=== PATIENT | female | born 1945 | race Caucasian/White ===

== ENCOUNTER 2020-11-18 05:58 | Inpatient (IN) | payer OTHER ==
[~2020-11-18] VITALS: Ht 165.1 cm; Wt 118.0 kg
[~2020-11-18 05:58] MED LIST: ZOSYN 3/0.373.375 G3 IVPB
[2020-11-18 09:17] VITALS: BP 164/68
[2020-11-18] MEDS ORDERED: [UNRECOGNIZED DRUG - OTHER] (10:55)
[2020-11-18] MEDS ORDERED: IVERMECTIN (10:55)
[2020-11-18] MEDS ORDERED: DEXAMETHASONE6 MG PO (10:56)
[2020-11-18] MEDS ORDERED: MELATONIN3 MG PO (10:56)
[2020-11-18] MEDS ORDERED: FUROSEMIDE 40 M40 M1 PO (10:57)
[2020-11-18] MEDS ORDERED: CONSTULOSE10 GM/152 (10:57)
[2020-11-18] MEDS ORDERED: OMEPRAZOLE40 MG PO (10:58)
[2020-11-18] MEDS ORDERED: LEVOTHYROXINE100 MCG PO (10:58)
[2020-11-18] MEDS ORDERED: POTASSIUM CHLO10 MEQ PO (10:58)
[2020-11-18] MEDS ORDERED: AMARYL2 MG PO (10:58)
[2020-11-18] MEDS ORDERED: ATORVASTATIN CA20 MG PO (10:59)
[2020-11-18] MEDS ORDERED: NEURONTIN 400400 M1 PO (10:59)
[2020-11-18] MEDS ORDERED: DILTIAZEM 24HR120 M1 PO (10:59)
[2020-11-18] MEDS ORDERED: APAP W/CODEINE1 TA2 PO (10:59)
[2020-11-18] MEDS ORDERED: LOSARTAN POTAS100 MG PO (11:00)
[2020-11-18] MEDS ORDERED: METFORMIN HCL1000 MG PO (11:00)
[2020-11-18] MEDS ORDERED: GOLYTELY4000 ML PO (11:00)
[2020-11-18] MEDS ORDERED: ADMELOG100 UNIT/1 SUBQ (11:32)
[2020-11-18] MEDS ORDERED: CARVEDILOL6.25 M1 PO (11:34)
[2020-11-18] MEDS ORDERED: NADOLOL 20 MG T20 M1 PO (11:35)
[2020-11-18] MEDS ORDERED: TYLENOL325 M1 PO (11:37)
[2020-11-18] MEDS ORDERED: IPRAT-ALBUT 0.5-3 ML INH (11:41)
[2020-11-18] MEDS ORDERED: PROAIR HFA8.5 GM INH (11:42)
[2020-11-18] MEDS ORDERED: DULCOLAX STOOL100 M1 PO (11:43)
[2020-11-18] MEDS ORDERED: IOHEXOL 300 MG/ML IV (11:45)
[2020-11-18 12:00] VITALS: BP 165/64
[2020-11-18 15:52] LABS: ABSOLUTE LYMPHOCYTES 0.3 thou/uL (0.8-5.3); ABSOLUTE MONOCYTES 0.2 thou/uL (0.0-1.2); ABSOLUTE NEUTROPHILS 2.1 thou/uL (1.6-8.1); BASOPHILS 0.3 %; HEMATOCRIT 34.9 % (37.0-47.0); HEMOGLOBIN 12.3 gm/dL (12.0-15.0); LYMPHOCYTES 12.5 %; MCH 32.8 pg (26.0-34.0); MCHC 35.4 g/dL (28.0-37.0); MCV 92.7 fL (80.0-100.0); MONOCYTES 7.4 %; MPV 8.6 fl. (7.2-11.1); NUCLEATED RBCS 0 /100WBC; POLYS 78.8 %; RBC 3.76 mil/uL (4.20-5.00); RDW-CV 13.8 % (10.5-14.5); WBC 2.7 thou/uL (4.0-11.0)
[2020-11-18 15:53] LABS: PLATELET COUNT* 34 thou/uL (150-400)
[2020-11-18 16:12] LABS: ALBUMIN 2.4 g/dL (3.4-5.0); CALCIUM 7.8 mg/dL (8.5-10.1); CREATININE 1.3 mg/dL (0.6-1.3); TOTAL BILIRUBIN 2.2 mg/dL (<0.1-1.0); TOTAL PROTEIN 5.1 g/dL (6.4-8.2)
[2020-11-18 16:49] VITALS: BP 143/70
[2020-11-18 20:00] VITALS: BP 129/45
[2020-11-19] VITALS (7 sets, daily range): BP systolic 112–168; BP diastolic 47–69
[2020-11-19 05:42] LABS: ABSOLUTE EOSINOPHILS 0.1 thou/uL (0.0-0.7); ABSOLUTE LYMPHOCYTES 0.4 thou/uL (0.8-5.3); ABSOLUTE MONOCYTES 0.2 thou/uL (0.0-1.2); ABSOLUTE NEUTROPHILS 1.8 thou/uL (1.6-8.1); BASOPHILS 0.1 %; EOSINOPHILS 2.6 %; HEMATOCRIT 32.9 % (37.0-47.0); HEMOGLOBIN 11.6 gm/dL (12.0-15.0); LYMPHOCYTES 16.9 %; MCH 32.8 pg (26.0-34.0); MCHC 35.2 g/dL (28.0-37.0); MCV 93.1 fL (80.0-100.0); MONOCYTES 6.7 %; MPV 8.6 fl. (7.2-11.1); NUCLEATED RBCS 0 /100WBC; POLYS 73.7 %; RBC 3.54 mil/uL (4.20-5.00); RDW-CV 13.8 % (10.5-14.5); WBC 2.5 thou/uL (4.0-11.0)
[2020-11-19 05:51] LABS: PLATELET COUNT* 28 thou/uL (150-400)
[2020-11-19 05:58] LABS: CALCIUM 7.5 mg/dL (8.5-10.1); CREATININE 0.9 mg/dL (0.6-1.3); POTASSIUM 3.3 mmol/L (3.5-5.1)
--- NOTE | 2020-11-19 09:02 | 2DMMODE ---
[place] [address] 2 D/M-MODE ECHOCARDIOGRAM Name: DENNISJS BROWN Room: [address] IN [facility]#: [id number] Admission: 11/18/20 Attend Phys: Todd Wilson Discharge: Date of : 49 Date of Service: 11/19/20900 Report #: [id number] THIS REPORT FOR: cc: Gonzales Holliday,Gonzales Sewell,Oh Aguilera MD [facility] ~ APPROVED REPORT Study performed: 11/18/2020 16:11:02 EXAM: Comprehensive 2D, Doppler, and color-flow Echocardiogram Patient Location: In-Patient Room #: [facility] Status: routine BSA: 2.17 HR: 78 bpm BP: 165/64 mmHg Rhythm: NSR Other Information Study Quality: Good Indications Elevated Troponin 2D Dimensions IVSd: 8.50 (7-11mm) LVOT Diam: 21.04 (18-24mm) LVDd: 55.53 mm PWd: 13.49 (7-11mm) Ascending Ao: 29.95 (22-36mm) LVDs: 33.34 (25-40mm) Volumes Left Atrial Volume (Systole) LA ESV Index: 44.80 mL/m2 Aortic Valve AoV Peak Gavin.: 3.53 m/s AO Peak Gr.: 49.93 mmHg LVOT Max P.37 mmHg AO Mean Gr.: 28.11 mmHg LVOT Mean P.79 mmHg LVOT Max V: 1.53 m/s AO V2 VTI: 72.79 cm LVOT Mean V: 1.01 m/s MALA (VTI): 1.69 cm2 LVOT V1 VTI: 35.35 [place] [address] 2 D/M-MODE ECHOCARDIOGRAM Name: JS COLLINS Room: [address]#: [id number] Admission: 11/18/20 Attend Phys: Todd Wilson Discharge: Date of : 49 Date of Service: 11/19/20 09 Report #: [id number] MV Mean Gr.: 5.39 mmHg E/A Ratio: 1.19 MV Decel. Time: 362.93 ms MV E Max Gavin.: 1.47 m/s MV PHT: 105.25 ms MVA (PHT): 2.09 cm2 TDI E/Lateral E': 16.33 E/Medial E': 21.00 Medial E' Gavin.: 0.07 m/s Lateral E' Gavin.: 0.09 m/s Pulmonary Valve PV Peak Gavin.: 1.73 m/s PV Peak Gr.: 11.96 mmHg Tricuspid Valve RAP Estimate: 5.00 mmHg TR Peak Gr.: 42.92 mmHg RVSP: 47.00 mmHg PA Pressure: 47.00 mmHg Left Ventricle The left ventricle is normal size. There is normal LV segmental wall motion. There is normal left ventricular wall thickness. Left ventricular systolic function is normal. The left ventricular ejection fraction is within the normal range. LVEF is 60-65%. The left ventricular diastolic function is normal. Right Ventricle The right ventricle is normal size. The right ventricular systolic function is normal. Atria Left atrium is mildly dilated. The right atrium size is normal. Aortic Valve Moderate aortic valve sclerosis. Mild aortic regurgitation. Moderate aortic stenosis. Mitral Valve Moderate mitral annular calcification. Mild mitral regurgitation. No evidence of mitral valve stenosis. Tricuspid Valve The tricuspid valve is normal in structure. Mild tricuspid regurgitation. Moderate [place] [address] 2 D/M-MODE ECHOCARDIOGRAM Name: JS COLLINS Room: [address]#: [id number] Admission: 11/18/20 Attend Phys: Todd Wilson Discharge: Date of : 49 Date of Service: 11/19/20 0901 Report #: [id number] Pulmonic Valve The pulmonary valve is normal in structure. There is no pulmonic valvular regurgitation. Great Vessels The aortic root is normal in size. IVC is normal in size and collapses >50% with inspiration. Pericardium There is no pericardial effusion. <Conclusion> The left ventricle is normal size. There is normal left ventricular wall thickness. Left ventricular systolic function is normal. The left ventricular ejection fraction is within the normal range. LVEF is 60-65%. The left ventricular diastolic function is normal. The right ventricle is normal size. Left atrium is mildly dilated. The right atrium size is normal. Moderate aortic valve sclerosis. Mild aortic regurgitation. Moderate aortic stenosis. Moderate mitral annular calcification. Mild mitral regurgitation. No evidence of mitral valve stenosis. The tricuspid valve is normal in structure. Mild tricuspid regurgitation. Moderate pulmonary hypertension. IVC is normal in size and collapses >50% with inspiration. There is no pericardial effusion. There is normal LV segmental wall motion. <ELECTRONICALLY SIGNED> By: Oh Sewell MD, FACC 11/19/20900 0 0 Oh Sewell MD, FACC /INF
--- NOTE | 2020-11-19 09:36 | EKG ---
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
[2020-11-19 11:20] LABS: CALCIUM 7.5 mg/dL (8.5-10.1); POTASSIUM 3.3 mmol/L (3.5-5.1)
[2020-11-19 11:24] LABS: MAGNESIUM 1.5 mg/dL (1.8-2.4); PHOSPHORUS* 3.1 mg/dL (2.5-4.9)
[2020-11-20 01:15] VITALS: BP 144/58
[2020-11-20 03:15] LABS: ABSOLUTE LYMPHOCYTES 0.3 thou/uL (0.8-5.3); ABSOLUTE MONOCYTES 0.1 thou/uL (0.0-1.2); ABSOLUTE NEUTROPHILS 2.2 thou/uL (1.6-8.1); HEMATOCRIT 34.1 % (37.0-47.0); LYMPHOCYTES 10.5 %; MCH 32.4 pg (26.0-34.0); MCHC 35.1 g/dL (28.0-37.0); MCV 92.4 fL (80.0-100.0); MONOCYTES 4.7 %; MPV 8.8 fl. (7.2-11.1); NUCLEATED RBCS 0 /100WBC; POLYS 84.8 %; RBC 3.69 mil/uL (4.20-5.00); RDW-CV 13.8 % (10.5-14.5); WBC 2.6 thou/uL (4.0-11.0)
[2020-11-20 03:22] LABS: ALBUMIN 2.3 g/dL (3.4-5.0); CALCIUM 7.7 mg/dL (8.5-10.1); CREATININE 1.1 mg/dL (0.6-1.3); POTASSIUM 4.4 mmol/L (3.5-5.1); TOTAL BILIRUBIN 1.4 mg/dL (<0.1-1.0); TOTAL PROTEIN 5.2 g/dL (6.4-8.2)
[2020-11-20 03:25] LABS: PLATELET COUNT* 28 thou/uL (150-400)
[2020-11-20 04:20] VITALS: BP 141/52
[2020-11-20 08:00] VITALS: BP 127/50
[2020-11-20 13:23] VITALS: BP 117/47
[2020-11-20 17:27] VITALS: BP 134/48
[2020-11-20 19:45] VITALS: BP 134/41
[2020-11-21 00:14] VITALS: BP 142/53
[2020-11-21 04:30] VITALS: BP 145/69
[2020-11-21 04:34] LABS: ABSOLUTE LYMPHOCYTES 0.3 thou/uL (0.8-5.3); ABSOLUTE MONOCYTES 0.2 thou/uL (0.0-1.2); ABSOLUTE NEUTROPHILS 4.1 thou/uL (1.6-8.1); BASOPHILS 0.1 %; EOSINOPHILS 0.1 %; HEMATOCRIT 31.3 % (37.0-47.0); HEMOGLOBIN 11.2 gm/dL (12.0-15.0); MCH 32.8 pg (26.0-34.0); MCHC 35.8 g/dL (28.0-37.0); MCV 91.6 fL (80.0-100.0); MONOCYTES 4.5 %; MPV 8.4 fl. (7.2-11.1); NUCLEATED RBCS 0 /100WBC; POLYS 88.3 %; RBC 3.42 mil/uL (4.20-5.00); RDW-CV 13.9 % (10.5-14.5); WBC 4.7 thou/uL (4.0-11.0)
[2020-11-21 04:49] LABS: PLATELET COUNT* 29 thou/uL (150-400)
[2020-11-21 04:58] LABS: ALBUMIN 2.2 g/dL (3.4-5.0); CALCIUM 7.7 mg/dL (8.5-10.1); CREATININE 1.1 mg/dL (0.6-1.3); POTASSIUM 4.1 mmol/L (3.5-5.1); TOTAL BILIRUBIN 0.9 mg/dL (<0.1-1.0)
[2020-11-21 05:05] LABS: PREALBUMIN 11.3 mg/dL (18.0-35.7)
[2020-11-21 08:12] VITALS: BP 118/41
[2020-11-21 12:42] VITALS: BP 127/47
[2020-11-21 16:48] VITALS: BP 141/54
[2020-11-21 20:00] VITALS: BP 126/47
[2020-11-22] VITALS: BP 117/54
[2020-11-22 04:00] VITALS: BP 149/57
[2020-11-22 05:08] LABS: ALBUMIN 2.3 g/dL (3.4-5.0); CALCIUM 8.1 mg/dL (8.5-10.1); POTASSIUM 4.3 mmol/L (3.5-5.1); TOTAL PROTEIN 5.1 g/dL (6.4-8.2)
[2020-11-22 05:09] LABS: HEMATOCRIT 33.1 % (37.0-47.0); HEMOGLOBIN 11.7 gm/dL (12.0-15.0); MCH 32.5 pg (26.0-34.0); MCHC 35.3 g/dL (28.0-37.0); MCV 92.2 fL (80.0-100.0); MPV 8.3 fl. (7.2-11.1); NUCLEATED RBCS 0 /100WBC; PREALBUMIN 12.9 mg/dL (18.0-35.7); RBC 3.59 mil/uL (4.20-5.00); RDW-CV 13.6 % (10.5-14.5); WBC 5.7 thou/uL (4.0-11.0)
[2020-11-22 05:17] LABS: PLATELET COUNT* 33 thou/uL (150-400)
[2020-11-22 06:06] LABS: ABSOLUTE LYMPHOCYTES 0.3 thou/uL (0.8-5.3); ABSOLUTE MONOCYTES 0.1 thou/uL (0.0-1.2); ABSOLUTE NEUTROPHILS 5.2 thou/uL (1.6-8.1); ANISOCYTOSIS 1+; PLATELET ESTIMATE DECREASED; POIKILOCYTOSIS 1+
[2020-11-22 08:07] VITALS: BP 126/47
[2020-11-22 12:00] VITALS: BP 124/49
[2020-11-22 19:45] VITALS: BP 134/52
[2020-11-22 23:27] VITALS: BP 152/60
[2020-11-23 03:30] VITALS: BP 141/54
[2020-11-23 04:38] LABS: HEMOGLOBIN 11.5 gm/dL (12.0-15.0); MCH 32.1 pg (26.0-34.0); MCHC 34.9 g/dL (28.0-37.0); MPV 8.6 fl. (7.2-11.1); RBC 3.58 mil/uL (4.20-5.00); WBC 4.8 thou/uL (4.0-11.0)
[2020-11-23 04:50] LABS: CALCIUM 8.2 mg/dL (8.5-10.1); POTASSIUM 4.1 mmol/L (3.5-5.1)
[2020-11-23] MEDS ORDERED: CARVEDILOL3.125 MG PO (07:29)
[2020-11-23] MEDS ORDERED: PREDNISONE 10 M10 MG PO (07:35)
[2020-11-23] MEDS ORDERED: CEFPODOXIME PR200 M1 PO (07:35)
[2020-11-23 12:00] VITALS: BP 143/60
[2020-11-23 14:10] VITALS: BP 143/60
== END 2020-11-23 14:00 | disposition home or self-care (01) | DRG 871 ==
LOC: M.ICU 05:58 → M.PRE 06:06 → M.ORTHSURG 09:00
PROVIDERS: Internal Medicine; ADMIT Internal Medicine; ATTEND Internal Medicine
DX: A41.50 Gram-negative sepsis, unspecified (principal); U07.1 COVID-19; J12.82 Pneumonia due to coronavirus disease 2019; J96.01 Acute respiratory failure with hypoxia; K74.60 Unspecified cirrhosis of liver; E11.9 Type 2 diabetes mellitus without complications; E03.9 Hypothyroidism, unspecified; I50.9 Heart failure, unspecified; Z96.649 Presence of unspecified artificial hip joint; I11.0 Hypertensive heart disease with heart failure; G89.29 Other chronic pain; I25.10 Atherosclerotic heart disease of native coronary artery without angina pectoris; M54.9 Dorsalgia, unspecified; E78.5 Hyperlipidemia, unspecified; I48.0 Paroxysmal atrial fibrillation; D69.6 Thrombocytopenia, unspecified; K75.81 Nonalcoholic steatohepatitis (NASH); K72.90 Hepatic failure, unspecified without coma; M48.00 Spinal stenosis, site unspecified; Z88.2 Allergy status to sulfonamides; Z85.3 Personal history of malignant neoplasm of breast; Z88.6 Allergy status to analgesic agent